=== PATIENT | female | born 1985 | race Hispanic/Latino ===

== ENCOUNTER 2018-03-16 14:15 | Emergency (ER) | payer MEDICAID, OTHER ==
[2018-03-16 14:17] VITALS: O2SAT 100
[2018-03-16 15:02] LABS: BASO # 0.1 K/uL (0.0-0.2); BASO % 1.4 % (0.0-2.0); EOS # 0.3 K/uL (0.0-0.7); EOS % 3.5 % (0.0-4.0); HEMOGLOBIN 13.3 g/dL (12.0-16.0); LYMPH # 2.5 K/uL (1.0-4.3); LYMPH % 26.8 % (20.0-40.0); MEAN CORPUSCULAR HEMOGLOBIN 29.6 pg (27.0-31.0); MEAN CORPUSCULAR HGB CONC 33.6 g/dL (33.0-37.0); MEAN PLATELET VOLUME 9.6 fl (7.2-11.7); MONO # 0.7 K/uL (0.0-0.8); MONO % 7.3 % (0.0-10.0); NEUT # 5.8 K/uL (1.8-7.0); NRBC % 0.1 % (0.0-0.0); RBC 4.5 Mil/uL (3.80-5.20); RED CELL DISTRIBUTION WIDTH 15.1 % (11.5-14.5); WHITE BLOOD COUNT 9.5 K/uL (4.8-10.8)
[2018-03-16 15:12] LABS: ALB/GLOB RATIO 1.2 (1.0-2.1); ALBUMIN 4.5 g/dL (3.5-5.0); ALT/SGPT 44 U/L (9-52); AST/SGOT 38 U/L (14-36); BLOOD UREA NITROGEN 18 mg/dl (7-17); CALCIUM 9.7 mg/dL (8.4-10.2); GFR NON-AFRICAN AMERICAN > 60; LIPASE 67 U/L (23-300)
[2018-03-16] MEDS ORDERED: Sodium Chloride 0.9% 1,000 ML IV STA (15:16)
[2018-03-16] MEDS ORDERED: Iohexol 240 (50 ml) PO ONE (15:16)
[2018-03-16] MEDS ORDERED: Iohexol 240 (50 ml) ONE (15:33)
--- NOTE | 2018-03-16 15:47 | ED PDOC ---
HPI: Abdomen Time Seen by Provider: 03/16/18 14:34 Chief Complaint (Nursing): Abdominal Pain Chief Complaint (Provider): Abdominal Pain History Per: Patient History/Exam Limitations: no limitations Onset/Duration Of Symptoms: Days (x3 weeks) Location Of Pain/Discomfort: Epigastric, LLQ Quality Of Discomfort: Cramping Associated Symptoms: denies: Nausea, Vomiting, Diarrhea Additional Complaint(s): Patient is a 32 y/o female with no significant past medical history who presents to the ED complaining of abdominal pain for the past x3 weeks. Patient reports that the pain starts in the epigastric area and radiates to her left lower quadrant. She states that he pain comes and goes and describes it as a cramping spasming pain. She states that since the onset of symptoms she has been to [facility] 3 times regarding these symptoms; the first time she was told she had constipation, the second she was diagnosed with UTI and was given Cipro. Patient states she has not followed up with her PMD or her GI since these visits. She denies nausea, vomiting, diarrhea, dysuria, or fever. Past Medical History Reviewed: Historical Data, Nursing Documentation, Vital Signs Vital Signs: Last Vital Signs Temp 98.3 F 03/16/18 14:18 Pulse 68 03/16/18 14:18 Resp 16 03/16/18 14:18 BP 110/65 03/16/18 14:18 Pulse Ox 100 03/16/18 19:46 - Medical History PMH: No Chronic Diseases - Surgical History Surgical History: - Family History Family History: States: Diabetes, Hypertension - Allergies Allergies/Adverse Reactions: Allergies Allergy/AdvReac Type Severity Reaction Status Date / Time No Known Allergies Allergy Verified 03/16/18 14:18 Review of Systems ROS Statement: Except As Marked, All Systems Reviewed And Found Negative Constitutional: Negative for: Fever Gastrointestinal: Positive for: Abdominal Pain. Negative for: Nausea, Vomiting , Diarrhea Genitourinary Female: Negative for: Dysuria Physical Exam - Reviewed Nursing Documentation Reviewed: Yes Vital Signs Reviewed: Yes - Physical Exam Comments: GENERAL APPEARANCE: Patient is awake, alert, oriented x 3, in no acute distress and resting comfortably. SKIN: Warm, dry; (-) cyanosis. EYES: (-) conjunctival pallor, (-) scleral icterus. ENMT: Mucous membranes moist. NECK: (-) tenderness, (-) stiffness, (-) lymphadenopathy. CHEST AND RESPIRATORY: (-) rales, (-) rhonchi, (-) wheezes; breath sounds equal bilaterally. HEART AND CARDIOVASCULAR: (-) irregularity; (-) murmur, (-) gallop. ABDOMEN AND GI: (-) distention. Bowel sounds active; (+) general diffuse abdominal tenderness, (-) guarding, (-) rebound, (-) palpable masses, (-) CVA tenderness. EXTREMITIES: (-) deformity, (-) edema, (+) distal pulses. NEURO AND PSYCH: Mental status as above; (-) focal findings. - Laboratory Results Result Diagrams: 03/16/18 14:55 03/16/18 14:55 - ECG O2 Sat by Pulse Oximetry: 100 (RA) Pulse Ox Interpretation: Normal Medical Decision Making Medical Decision Making: Time: 14:41 Impression: Abdominal pain Initial Plan: --CT Abdomen and Pelvis --CMP --Lipase --ED Urine --CBC w/ diff --Morphine --IV fluids --Omnipaque --Pepcid --Zofran Uh (-) Udip (-) Labs reviewed and wnl, wbc, LFTs and lipse normal. On reevaluation, patient is resting comfortably in bed in no acute distress, reports of continued pain to the lower abdomen. On exam abdomen is soft with mild lower abdominal tenderness. Patient medicated with Toradol [address] of the abdomen and pelvis is pending at this time. Scribe Attestation: Documented by Geovani Barry acting as a scribe for Jackelyn Connelly Provider Scribe Attestation: All medical record entries made by the Scribe were at my direction and personally dictated by me. I have reviewed the chart and agree that the record accurately reflects my personal performance of the history, physical exam, medical decision making, and the department course for this patient. I have also personally directed, reviewed, and agree with the discharge instructions and disposition. Disposition - Clinical Impression Clinical Impression: Abdominal pain Counseled Patient/Family Regarding: Studies Performed, Diagnosis, Need For Followup - Disposition Referrals: Samuel Chow MD [Primary Care Provider] - Disposition: Transfer of Care (Case endorsed to [facility] pending CT results & final disposition.) Disposition Time: 20:00 Condition: STABLE Forms: [employer])
[2018-03-16] MEDS ORDERED: Iohexol 300 100 ML IJ ONE (18:59)
[2018-03-16] MEDS ORDERED: Sodium Chloride 0.9% 50 ML IV ONE (19:00)
--- NOTE | 2018-03-16 20:09 | CT ---
EXAM: CT Abdomen and Pelvis With Intravenous Contrast EXAM DATE/TIME: 03/16/2018 3:16 PM CLINICAL HISTORY: 32 years old, female; Pain; Abdominal pain; Localized; Lower; Additional info: Lower abd pain TECHNIQUE: Axial computed tomography images of the abdomen and pelvis with intravenous contrast. All CT scans at this facility use at least one of these dose optimization techniques: automated exposure control; mA and/or kV adjustment per patient size (includes targeted exams where dose is matched to clinical indication); or iterative reconstruction. Coronal and sagittal reformatted images were created and reviewed. CONTRAST: 95 ml of omnipaque 300 administered intravenously. COMPARISON: No relevant prior studies available. FINDINGS: Lower thorax: No acute findings. ABDOMEN: Liver: Normal. No mass. Gallbladder and bile ducts: Normal. No calcified stones. No ductal dilation. Pancreas: Normal. No ductal dilation. Spleen: Normal. No splenomegaly. Adrenals: Normal. No mass. Kidneys and ureters: 2.3 cm right renal cyst. Stomach and bowel: Moderate feces is present throughout the colon. Appendix: The appendix is seen and is normal in appearance. PELVIS: Bladder: Unremarkable as visualized. Reproductive: There is a 1.8 cm enhancing hypervascular lesions in bilateral adnexa, most compatible with a corpus luteal cysts. ABDOMEN and PELVIS: Intraperitoneal space: Small amount of complex fluid in the pelvis. No free air. No significant fluid collection. Bones/joints: No acute fracture. No dislocation. Soft tissues: Unremarkable. Vasculature: Normal. No abdominal aortic aneurysm. Lymph nodes: Normal. No enlarged lymph nodes. IMPRESSION: 1. There is a 1.8 cm enhancing hypervascular lesions in bilateral adnexa, most compatible with a corpus luteal cysts with a small amount of complex fluid in the pelvis 2. Remainder of findings as described above.
--- NOTE | 2018-03-16 20:26 | ED PDOC ---
"- Laboratory Results Result Diagrams: 03/16/18 14:55 03/16/18 14:55 - ECG O2 Sat by Pulse Oximetry: 100 (RA) - Progress ED Course And Treament: CT ABD/PELVIS: FINDINGS: Lower thorax: No acute findings. ABDOMEN: Liver: Normal. No mass. Gallbladder and bile ducts: Normal. No calcified stones. No ductal dilation. Pancreas: Normal. No ductal dilation. Spleen: Normal. No splenomegaly. Adrenals: Normal. No mass. Kidneys and ureters: 2.3 cm right renal cyst. Stomach and bowel: Moderate feces is present throughout the colon. Appendix: The appendix is seen and is normal in appearance. PELVIS: Bladder: Unremarkable as visualized. Reproductive: There is a 1.8 cm enhancing hypervascular lesions in bilateral adnexa, most compatible with a corpus luteal cysts. JOSE FRANCO | Final Radiology Report CONFIDENTIALITY STATEMENT This report is intended only for use by the referring physician, and only in accordance with law. If you received this in error, call [phone]. Page 2 of 2 ABDOMEN and PELVIS: Intraperitoneal space: Small amount of complex fluid in the pelvis. No free air. No significant fluid collection. Bones/joints: No acute fracture. No dislocation. Soft tissues: Unremarkable. Vasculature: Normal. No abdominal aortic aneurysm. Lymph nodes: Normal. No enlarged lymph nodes. IMPRESSION: 1. There is a 1.8 cm enhancing hypervascular lesions in bilateral adnexa, most compatible with a corpus luteal cysts with a small amount of complex fluid in the pelvis 2. Remainder of findings as described above. Thank you for allowing us to participate in the care of your patient. Dictated and Authenticated by: Esperanza Fabian MD d/w patient. Patient states she has no pain currently. Has had ongoing issues with constipation. Disposition - Clinical Impression Clinical Impression: Constipation, Abdominal pain, Ovarian cyst - POA Present On Arrival: None - Disposition Referrals: Samuel Chow MD [Primary Care Provider] - Dedra Murphy MD [Medical Doctor] - Disposition: Routine/Home Disposition Time: 20:26 Condition: FAIR Instructions: Ovarian Cysts Forms: [employer] (Chinese)"
--- NOTE | 2018-03-16 20:31 | ED PDOC ---
"- Laboratory Results Result Diagrams: 03/16/18 14:55 03/16/18 14:55 - ECG O2 Sat by Pulse Oximetry: 100 (RA) - Progress ED Course And Treament: CT ABD/PELVIS: FINDINGS: Lower thorax: No acute findings. ABDOMEN: Liver: Normal. No mass. Gallbladder and bile ducts: Normal. No calcified stones. No ductal dilation. Pancreas: Normal. No ductal dilation. Spleen: Normal. No splenomegaly. Adrenals: Normal. No mass. Kidneys and ureters: 2.3 cm right renal cyst. Stomach and bowel: Moderate feces is present throughout the colon. Appendix: The appendix is seen and is normal in appearance. PELVIS: Bladder: Unremarkable as visualized. Reproductive: There is a 1.8 cm enhancing hypervascular lesions in bilateral adnexa, most compatible with a corpus luteal cysts. JOSE FRANCO | Final Radiology Report CONFIDENTIALITY STATEMENT This report is intended only for use by the referring physician, and only in accordance with law. If you received this in error, call [phone]. Page 2 of 2 ABDOMEN and PELVIS: Intraperitoneal space: Small amount of complex fluid in the pelvis. No free air. No significant fluid collection. Bones/joints: No acute fracture. No dislocation. Soft tissues: Unremarkable. Vasculature: Normal. No abdominal aortic aneurysm. Lymph nodes: Normal. No enlarged lymph nodes. IMPRESSION: 1. There is a 1.8 cm enhancing hypervascular lesions in bilateral adnexa, most compatible with a corpus luteal cysts with a small amount of complex fluid in the pelvis 2. Remainder of findings as described above. Thank you for allowing us to participate in the care of your patient. Dictated and Authenticated by: Esperanza Fabian MD d/w patient. Patient states she has no pain currently. Has had ongoing issues with constipation. Disposition Disposition - Clinical Impression Clinical Impression: Constipation, Abdominal pain, Ovarian cyst - POA Present On Arrival: None - Disposition Referrals: Dedra Murphy MD [Medical Doctor] - Samuel Chow MD [Primary Care Provider] - Disposition: Routine/Home Disposition Time: 20:30 Condition: FAIR Prescriptions: Docusate Sodium [Colace] 100 mg PO BID #20 capsule Phosphate Enema [Fleet Enema 135 Ml] 135 ml RC ONCE PRN #1 nma PRN Reason: Constipation Instructions: Ovarian Cysts, Constipation, Adult (DC), High Fiber Diet"
[2018-03-16 21:07] VITALS: BP 115/66; PULSE 72; RESP 18; TEMP 98
== END 2018-03-16 20:40 | disposition home or self-care (01) ==
LOC: H.ER 14:15
DX: K59.00 Constipation, unspecified (principal); N83.209 Unspecified ovarian cyst, unspecified side
CPT/HCPCS: 74177; 80053; 81025; 83690; 85025; 96374; 96375; 99285; J1885; J2270; J2405; J7030; Q9966; Q9967